=== PATIENT | male | born 1970 | race Caucasian/White ===

== ENCOUNTER 2017-02-03 01:25 | Emergency (ER) | payer MEDICAID ==
--- NOTE | 2017-02-03 02:46 | C.PDOC ---
History Of Present Illness 46 year old male presents to the ER with a complaint of pain to his left lower back that radiates to his left thigh and left leg that began 2 hours [employer]. Patient reports he usually works out a lot but has been decreasing the amount this week and is unsure of mechanism of injury. Pain is worse with movements. Denies recent injury, weakness, numbness, dysuria, hematuria, or incontinence. Time Seen by Provider: 02/03/17 01:44 Chief Complaint (Nursing): Back Pain History Per: Patient History/Exam Limitations: no limitations Onset/Duration Of Symptoms: Hrs Current Symptoms Are (Timing): Still Present Quality Of Discomfort: Unable To Describe Previous Symptoms: None Associated Symptoms: None Exacerbating Factor(s): Nothing Recent travel outside of the [place]: No Past Medical History Reviewed: Historical Data, Nursing Documentation, Vital Signs Vital Signs: Last Vital Signs Temp 97.5 F L 02/03/17 03:16 Pulse 70 02/03/17 03:16 Resp 16 02/03/17 03:16 BP 136/90 02/03/17 03:16 Pulse Ox 97 02/03/17 03:16 - Medical History PMH: No Chronic Diseases Surgical History: No Surg Hx Family History: States: Unknown Family Hx - Social History Hx Alcohol Use: No Hx Substance Use: No - Immunization History Hx Tetanus Toxoid Vaccination: No Hx Influenza Vaccination: No Hx Pneumococcal Vaccination: No Review Of Systems Genitourinary: Negative for: Dysuria, Incontinence, Hematuria Musculoskeletal: Positive for: Back Pain Neurological: Negative for: Weakness, Numbness Physical Exam - Physical Exam Appears: Non-toxic, No Acute Distress Skin: Normal Color, Warm, Dry Head: Atraumatic, Normacephalic Eye(s): bilateral: Normal Inspection, EOMI Back: Paraspinal Tenderness (Left lumbar), Straight Leg Raising (Positive to left leg at 45 degrees) Extremity: Normal ROM (x4) Pulses: Left Dorsalis Pedis: Normal, Right Dorsalis Pedis: Normal Neurological/Psych: Oriented x3, Normal Motor, Normal Sensation Gait: Steady ED Course And Treatment O2 Sat by Pulse Oximetry: 98 (Room air) Pulse Ox Interpretation: Normal - Other Rad LS spine x-ray X-Ray: Interpreted by Me, Viewed By Me Interpretation: No acute fractures or dislocations. Progress Note: LS spine x-ray ordered. Flexeril and motrin administered. On reassessment, patient is resting comfortably, with improvement of back pain. Patient with no bony tenderness, extremity numbness or weakness. Patient is ambulatory in the emergency department with no signs of discomfort. Patient was advised to follow up with PMD in 1-2 days. Disposition Counseled Patient/Family Regarding: Diagnosis, Need For Followup, Rx Given - Disposition Disposition: HOME/ ROUTINE Disposition Time: 02:43 Condition: STABLE Additional Instructions: Please follow up with PMD or in clinic Take meds as directed Return to ER if worse Prescriptions: Cyclobenzaprine [Cyclobenzaprine HCl] 10 mg PO BID #14 tab Ibuprofen [Motrin Tab] 800 mg PO QID #20 tab Instructions: Acute Low Back Pain (ED) Forms: [employer] (Bengali) - Clinical Impression Clinical Impression: Low back strain - Scribe Statement The provider has reviewed the documentation as recorded by the Scribe Ramo Brian All medical record entries made by the Scribe were at my direction and personally dictated by me. I have reviewed the chart and agree that the record accurately reflects my personal performance of the history, physical exam, medical decision making, and the department course for this patient. I have also personally directed, reviewed, and agree with the discharge instructions and disposition.
[2017-02-03 03:17] VITALS: BP 136/90; PULSE 70; RESP 16; TEMP 97.5
[2017-02-03 04:23] VITALS: O2SAT 98
--- NOTE | 2017-02-03 17:41 | RAD ---
PROCEDURE: Radiographs of the Lumbar Spine. HISTORY: low back pain COMPARISON: None available. FINDINGS: BONES: Alignment appears satisfactory. No listhesis. No acute displaced fracture identified. Question degenerative change/ ossific proliferation along the lateral aspect at L4-L5 level. DISC SPACES: Unremarkable. OTHER FINDINGS: None. IMPRESSION: No acute displaced fracture or subluxation identified. Question degenerative change/ ossific proliferation along the lateral aspect at L4-L5 level. Suggest further evaluation with cross-sectional imaging. Study marked for PA review.
== END 2017-02-03 03:16 | disposition home or self-care (01) ==
LOC: C.ER 01:25
DX: S39.012A Strain of muscle, fascia and tendon of lower back, initial encounter (principal); X58.XXXA Exposure to other specified factors, initial encounter; Y93.89 Activity, other specified; Y92.89 Other specified places as the place of occurrence of the external cause

== ENCOUNTER 2017-02-03 21:16 | Emergency (ER) | payer MEDICAID ==
[2017-02-03 21:33] VITALS: BP 143/84; PULSE 65; RESP 20; TEMP 97.8; O2SAT 98
[2017-02-03] MEDS ORDERED: Dexamethasone 4 mg/1 ml IVP STA (22:13)
[2017-02-03] MEDS ORDERED: Dexamethasone 4 mg/1 ml ONE (22:36)
--- NOTE | 2017-02-03 22:58 | C.PDOC ---
History Of Present Illness 46 y/o presents to ED with complaints of back pain since yesterday. Patient was seen yesterday at ED for same complaints and was treated and given prescription for pain medication. Patient states he is compliant with medication and pain has not improved, now pain radiates to left leg worse when walking. Patient admits to occasional difficulty urinating and denies chest pain, sob, hematuria , constipation, abdominal pain, heavy lifting, injury or any other complaints at this time. Time Seen by Provider: 02/03/17 21:46 Chief Complaint (Nursing): Back Pain History Per: Patient History/Exam Limitations: no limitations Onset/Duration Of Symptoms: Days Current Symptoms Are (Timing): Still Present Quality Of Discomfort: "Pain" Exacerbating Factor(s): Standing Past Medical History Reviewed: Historical Data, Nursing Documentation, Vital Signs Vital Signs: Last Vital Signs Temp 97.8 F 02/03/17 21:31 Pulse 65 02/03/17 21:31 Resp 20 02/03/17 21:31 BP 143/84 02/03/17 21:31 Pulse Ox 98 02/03/17 23:26 Surgical History: No Surg Hx Family History: States: No Known Family Hx - Social History Hx Alcohol Use: No Hx Substance Use: No - Immunization History Hx Tetanus Toxoid Vaccination: No Hx Influenza Vaccination: No Hx Pneumococcal Vaccination: No Review Of Systems Constitutional: Negative for: Fever, Chills Gastrointestinal: Negative for: Nausea, Vomiting, Abdominal Pain, Diarrhea, Constipation Genitourinary: Negative for: Dysuria, Hematuria Musculoskeletal: Positive for: Back Pain, Leg Pain Skin: Negative for: Rash Physical Exam - Physical Exam Appears: Non-toxic, No Acute Distress Skin: Warm, Dry, No Rash Head: Atraumatic, Normacephalic Eye(s): bilateral: Normal Inspection Oral Mucosa: Moist Neck: Normal ROM, No Midline Cervical Tenderness, No Paracervical Tenderness, Supple Cardiovascular: Rhythm Regular Respiratory: Normal Breath Sounds, No Rales, No Rhonchi, No Wheezing Gastrointestinal/Abdominal: Soft, No Tenderness, No Guarding, No Rebound Back: No CVA Tenderness, Other (Left paralumbar tenderness) Extremity: Normal ROM, Capillary Refill (<2 seconds) Neurological/Psych: Oriented x3, Normal Motor, Normal Sensation Gait: Steady ED Course And Treatment O2 Sat by Pulse Oximetry: 98 (RA) Pulse Ox Interpretation: Normal Medical Decision Making Medical Decision Making: Old Records Reviewed: Patient seen at ED yesterday and had Xray that was negative. Patient discharged with Flexiril and Ibuprofen. On re-exam, the patient rpeorts improvement of symptoms. Lungs are CTA, heart is RRR, ambulatory in the ED with steady. Abdomen is soft, non-tender and the patient is tolerating PO well. Follow up with the medical doctor within 1-2 days. Return if worsened. Plan: Patient will be discharged with stronger pain medication Disposition - Disposition Referrals: Brown Yeager DO [Doctor Osteopathy] - Vincent Matthew MD [Non-Staff] - Disposition: HOME/ ROUTINE Disposition Time: 23:23 Condition: GOOD Additional Instructions: Follow up with the medical doctor within 1-2 days. Return if worsened. Prescriptions: Acetaminophen [Tylenol] 325 mg PO Q6 PRN #30 tab PRN Reason: Pain, Mild (1-3) Lidocaine 5% [Lidoderm] 1 patch TOP DAILY #10 patch Instructions: Lumbar Radiculopathy (ED) Forms: [employer] (Korean), Work Excuse - Clinical Impression Clinical Impression: Lumbar radiculopathy - PA / [employer] / Resident Statement / has reviewed & agrees with the documentation as recorded. - Scribe Statement The provider has reviewed the documentation as recorded by the Georgeibdafne Otoole All medical record entries made by the Imelda were at my direction and personally dictated by me. I have reviewed the chart and agree that the record accurately reflects my personal performance of the history, physical exam, medical decision making, and the department course for this patient. I have also personally directed, reviewed, and agree with the discharge instructions and disposition.
== END 2017-02-03 23:30 | disposition home or self-care (01) ==
LOC: C.ER 21:16
DX: M54.16 Radiculopathy, lumbar region (principal)
CPT/HCPCS: 96372; 96374; 99283; J1100; J1885